=== PATIENT | female | born 1940 | race Caucasian/White ===

== ENCOUNTER → 2019-07-22 | Outpatient (CLI) | payer MEDICARE, BC ==
--- NOTE | 2019-07-22 13:18 | XR ---
EXAMINATION TYPE: XR chest 2V DATE OF EXAM: 07/22/2019 COMPARISON: NONE HISTORY: Cough and congestion TECHNIQUE: Frontal and lateral views of the chest are obtained. FINDINGS: There is no focal air space opacity, pleural effusion, or pneumothorax seen. The cardiac silhouette size is within normal limits. The osseous structures are intact. Cholecystectomy clips a re seen. Mild multilevel degenerative change of the spine. Diffuse osseous demineralization. IMPRESSION: No acute cardiopulmonary process.
== END | disposition home or self-care (01) ==
LOC: RADXRMAIN 12:33
PROVIDERS: ATTEND Family Medicine
DX: R05 Cough (principal); R09.89 Other specified symptoms and signs involving the circulatory and respiratory systems
CPT/HCPCS: 71046

== ENCOUNTER → 2024-07-18 | Outpatient (CLI) | payer MEDICARE, BC ==
--- NOTE | 2024-07-20 08:54 | MM ---
Reason for Exam: Screening (asymptomatic). Last mammogram was performed 1 year(s) and 2 month(s) ago. Patient History: Menarche at age 15. Patient has no children. Postmenopausal. Risk Values: Sharron 5 year model risk: 1.7%. NCI Lifetime model risk: 2.3%. Prior Study Comparison: 05/09/2022 Bilateral Screening Mammogram, [facility]. 05/14/2023 Bilateral Screening Mammogram, [facility]. Tissue Density: The breasts are heterogeneously dense, which may obscure small masses. Findings: Analyzed By CAD. Right breast: There is no suspicious group of microcalcifications or new suspicious mass. Left breast: There is no suspicious group of microcalcifications or new suspicious mass. Overall Assessment: Negative, BI-RAD 1 Management: Screening Mammogram of both breasts in [address] [facility] will attempt to contact patient to return for supplemental views and ultrasound if indicated. Patient should continue monthly self-breast exams. A clinical breast exam by your physician is recommended on an annual basis. This exam should not preclude additional follow-up of suspicious palpable abnormalities. Note on Sharron scores and lifetime risk: 1. A Sharron score greater than 3% is considered moderate risk. If this is the case, consider specialist referral to assess eligibility for a risk reducing agent. 2. If overall lifetime risk for the development of breast cancer is 20% or higher, the patient may qualify for future screening with alternating mammogram and breast MRI. [facility], , 07/20/2024 8:52 AM. Electronically signed and approved by: Andrew Umana DO
== END | disposition home or self-care (01) ==
LOC: RADMAMWWP 13:54
PROVIDERS: ATTEND Family Medicine
DX: Z12.31 Encounter for screening mammogram for malignant neoplasm of breast (principal); R92.333 Mammographic heterogeneous density, bilateral breasts; Z78.0 Asymptomatic menopausal state
CPT/HCPCS: 77063; 77067

== ENCOUNTER → 2024-08-22 | Outpatient (CLI) | payer MEDICARE, BC ==
--- NOTE | 2024-08-22 16:27 | XR ---
EXAMINATION TYPE: XR chest 2V DATE OF EXAM: 08/22/2024 3:53 PM COMPARISON: Chest radiographs from 07/22/2019 CLINICAL INDICATION: Female, 84 years old with history of R05.9 COUGH; [facility] TECHNIQUE: XR chest 2V Frontal and lateral views of the chest. FINDINGS: Lungs/Pleura: There is no evidence of pleural effusion, focal consolidation, or pneumothorax. Pulmonary vascularity: Unremarkable. Heart/mediastinum: Cardiomediastinal silhouette is unremarkable. Musculoskeletal: No acute osseous pathology. IMPRESSION: No acute cardiopulmonary disease/process. [facility], , 08/22/2024 4:24 PM
== END | disposition home or self-care (01) ==
LOC: RADXRMAIN 15:40
PROVIDERS: ATTEND Family Medicine
DX: R05.9 Cough, unspecified (principal)
CPT/HCPCS: 71046

== ENCOUNTER → 2024-11-09 | Outpatient (CLI) | payer MEDICARE, BC ==
--- NOTE | 2024-11-09 15:28 | US ---
EXAMINATION TYPE: US arterial LE single level DATE OF EXAM: 11/09/2024 2:59 PM COMPARISONS: None. CLINICAL INDICATION: Female, 84 years old with history of E11.69 TYPE 2 DIABETES E78.00 PURE HYPERCHO LESTERO; TECHNIQUE: Systolic pressures were taken of the upper and lower extremity arteries with ankle-brachia l indices and toe brachial indices calculated bilaterally. History of: Smoker: previous Hypertension: no Diabetic: yes Hyperlipidemia: yes TIA/CVA: no Previous Vascular Surgery: no CAD: no FL: no Vascular Ulcers: no Claudication: no Gangrene: no FINDINGS: Doppler Waveforms: Right: Biphasic Left: Monophasic Brachial Artery systolic pressure: Right: 131 Left: 135 Posterior Tibial artery systolic pressure: Right: 123 Left: 114 Dorsalis Pedis artery systolic pressure: Right: 125 Left: 112 Toe artery systolic pressure: Right: 92 Left: 104 Ankle-Brachial Indices: Right: 0.9 Left: 0.8 Toe Brachial Indices: Right: 0.7 Left: 0.8 (Normal > 0.6; Mild 0.35 - 0.59, Moderate 0.12 - 0.34, Severe <0.12) IMPRESSION: DIANA: Right: Normal 0.9 - 1.4, Recommendation: None Left: Mild Arterial Disease 0.8 - 0.9, Recommendation: None [facility], , 11/09/2024 3:26 PM
== END | disposition home or self-care (01) ==
LOC: RADUSWWP 14:10
PROVIDERS: ATTEND Family Medicine
DX: E11.69 Type 2 diabetes mellitus with other specified complication (principal); E78.00 Pure hypercholesterolemia, unspecified; N18.2 Chronic kidney disease, stage 2 (mild); Z79.899 Other long term (current) drug therapy; E11.42 Type 2 diabetes mellitus with diabetic polyneuropathy; G57.93 Unspecified mononeuropathy of bilateral lower limbs; I77.9 Disorder of arteries and arterioles, unspecified
CPT/HCPCS: 93922